=== PATIENT | male | born 1975 | race Caucasian/White ===

== ENCOUNTER → 2019-01-07 | Outpatient (CLI) | payer OTHER ==
[~2019-01-07] MED LIST: ALLEGRA60 MG; ALLERGY SHOTS; AMOXICILLIN500 M1 PO; AUGMENTIN 875875 MG PO; CIALIS5 MG PO; LEVAQUIN 750 M750 MG PO; LIDOCAINE VISC100 M1 MM; LIDOCAINE VISC100 ML SWISH&SPIT; MEDROL4 MG PO; NEXIUM20 MG; PROTANDUM; STRATTERA80 MG PO; ZPAK PO
== END ==
LOC: M.RAD 17:54
DX: J98.11 Atelectasis (principal)